=== PATIENT | male | born 1970 | race African-American/Black ===

== ENCOUNTER 2017-01-25 10:16 | Emergency (ER) | payer MEDICAID ==
[~2017-01-25] VITALS: Ht 188 cm; Wt 83.9 kg
--- NOTE | 2017-01-25 11:20 | NUR ---
[employer] AT BS.
--- NOTE | 2017-01-25 11:22 | NUR ---
[employer] AT BS.
--- NOTE | 2017-01-25 12:10 | NUR ---
Patient discharged to home in stable condition. Written and verbal after care instructions given. Patient verbalizes understanding of instruction.
[2017-01-25 12:12] VITALS: BP 132/80
== END 2017-01-25 12:14 | disposition home or self-care (01) ==
LOC: ER 10:19
DX: S99.911A Unspecified injury of right ankle, initial encounter (principal); F17.200 Nicotine dependence, unspecified, uncomplicated; Z95.828 Presence of other vascular implants and grafts; Z88.0 Allergy status to penicillin; V09.20XA Pedestrian injured in traffic accident involving unspecified motor vehicles, initial encounter; Y93.55 Activity, bike riding; Y92.89 Other specified places as the place of occurrence of the external cause; Y99.9 Unspecified external cause status
CPT/HCPCS: 73610-TC; A4606; Z7610